=== PATIENT | male | born 1955 ===

== ENCOUNTER → 2020-06-07 08:00 | Outpatient (CLI) | payer OTHER ==
[~2020-06-07] VITALS: Ht 188 cm; Wt 101.2 kg
[~2020-06-07 08:00] MED LIST: CARVEDILOL6.25 M1 PO
== END | disposition home or self-care (01) ==
LOC: LAB 08:00 → SURH 06-14 08:15 → EDSTATUS 06-14 11:30 → SURH 06-14 11:30
PROVIDERS: ATTEND Orthopaedic Surgery Sports Medicine
DX: M17.12 Unilateral primary osteoarthritis, left knee (principal); Z20.822 Contact with and (suspected) exposure to COVID-19